=== PATIENT | female | born 1935 | race Caucasian/White ===

== ENCOUNTER 2018-09-10 11:22 | Emergency (ER) | payer MEDICARE, OTHER ==
[2018-09-10 11:37] VITALS: BP 158/65
== END 2018-09-10 11:50 | disposition left against medical advice (07) ==
LOC: LL.ED 11:22
DX: Z53.21 Procedure and treatment not carried out due to patient leaving prior to being seen by health care provider (principal)

== ENCOUNTER 2018-11-01 12:17 | Emergency (ER) | payer MEDICARE, OTHER ==
[2018-11-01 12:23] VITALS: BP 144/75
--- NOTE | 2018-11-01 13:02 | EDM.PDOC ---
ED HPI GENERAL MEDICAL PROBLEM - General Chief Complaint: Upper Extremity Injury/Pain Stated Complaint: left arm deformity Time Seen by Provider: 11/01/18 12:30 Source of Information: Reports: Patient History Limitations: Reports: No Limitations - History of Present Illness INITIAL COMMENTS - FREE TEXT/NARRATIVE: Patient was walking towards a mailbox when she slipped on the ice landing on her left wrist obviously deformed and swollen at that time x-rays done prereduction revealed distal radial fracture Onset: Today, Sudden Duration: Minutes:, Constant Location: Reports: Upper Extremity, Right Quality: Reports: Ache, Throbbing Severity: Moderate Improves with: Reports: None Worsens with: Reports: Movement Context: Reports: Trauma Treatments [employer] MACHINE: Reports: Cold Therapy left arm Pain Score (Numeric/FACES): 10 - Related Data Allergies Allergy/AdvReac Type Severity Reaction Status Date / Time No Known Allergies Allergy Verified 09/10/18 11:28 Home Meds: Home Meds Aspirin [Halfprin] 81 mg PO DAILY 09/14/14 [History] Calcium Carbonate/Magnesium Ox [Oyster Shell Calcium-Magnes] 1 tab PO DAILY [History] Cholecalciferol (Vitamin D3) [Vitamin D3] 1,000 units PO QAM 09/14/14 [History] Melatonin 3 mg PO BEDTIME 09/14/14 [History] Metoprolol Succinate 50 mg PO QAM 09/14/14 [History] Multivitamin [Tab A Amanda] 1 tab PO QAM 09/14/14 [History] Nitroglycerin [Nitrostat] 0.4 mg SL ASDIRECTED PRN 09/14/14 [History] Rosuvastatin [Crestor] 5 mg PO BEDTIME 09/14/14 [History] metFORMIN [Glucophage] 1,000 mg PO QPM 09/14/14 [History] metFORMIN [Glucophage] 500 mg PO QAM 09/14/14 [History] Isosorbide Mononitrate [Imdur] 30 mg PO BID #60 tab.er 09/15/14 [Rx] Past Medical History - Infectious Disease History Infectious Disease History: Reports: Chicken Pox, Measles, Mumps Social & Family History - Tobacco Use Smoking Status *Q: Never Smoker Second Hand Smoke Exposure: No - Caffeine Use Caffeine Use: Reports: Coffee - Recreational Drug Use Recreational Drug Use: No Review of Systems - Review of Systems Review Of Systems: See Below Constitutional: Reports: No Symptoms Eyes: Reports: No Symptoms Ears: Reports: No Symptoms Nose: Reports: No Symptoms Mouth/Throat: Reports: No Symptoms Respiratory: Reports: No Symptoms Cardiovascular: Reports: No Symptoms GI/Abdominal: Reports: No Symptoms Genitourinary: Reports: No Symptoms Musculoskeletal: Reports: Arm Pain (Right arm wrist pain) Skin: Reports: Bruising, Change in Color (Secondary to hematoma) Neurological: Reports: No Symptoms Psychiatric: Reports: No Symptoms ED EXAM, GENERAL - Physical Exam Exam: See Below Exam Limited By: No Limitations General Appearance: Alert, WD/WN, No Apparent Distress Ears: Normal External Exam, Normal Canal, Hearing Grossly Normal, Normal TMs Ear Exam: Bilateral Ear: Auricle Normal, Canal Normal, TM normal Nose: Normal Inspection, Normal Mucosa, No Blood Throat/Mouth: Normal Inspection, Normal Lips, Normal Teeth, Normal Gums, Normal Oropharynx, Normal Voice, No Airway Compromise Head: Atraumatic, Normocephalic Neck: Normal Inspection, Supple, Non-Tender, Full Range of Motion Respiratory/Chest: No Respiratory Distress, Lungs Clear, Normal Breath Sounds, No Accessory Muscle Use, Chest Non-Tender Cardiovascular: Normal Peripheral Pulses, Regular Rate, Rhythm, No Edema, No Gallop, No JVD, No Murmur, No Rub GI/Abdominal: Normal Bowel Sounds, Soft, Non-Tender, No Organomegaly, No Distention, No Abnormal Bruit, No Mass (Female) Exam: Deferred Rectal (Female) Exam: Deferred Back Exam: Normal Inspection, Full Range of Motion, NT Extremities: Normal Capillary Refill, Arm Pain, Other (Radial fracture) Neurological: Alert, Oriented, CN II-XII Intact, Normal Cognition, Normal Gait, Normal Reflexes, No Motor/Sensory Deficits Psychiatric: Normal Affect, Normal Mood Skin Exam: Warm, Dry, Intact, Normal Color, No Rash Lymphatic: No Adenopathy ED TRAUMA EXTREMITY PROCEDURES - Additional/Other Procedure(s) Other (Free Text) Procedure(s): Distal radial fracture at this time an attempt at reduction with traction countertraction failed spoke with hand surgeon Dr. Loaiza will send to [facility] Course - Vital Signs Last Recorded V/S: Last Vital Signs Temp 98.1 F 11/01/18 12:18 Pulse 80 11/01/18 12:18 Resp 20 11/01/18 12:18 BP 144/75 H 11/01/18 12:18 Pulse Ox 99 11/01/18 12:18 - Orders/Labs/Meds Orders: Active Orders 24 hr Category Date Time Status Forearm 2V Lt [CR] Stat Exams 11/01/18 12:23 Taken Forearm 2V Lt [CR] Stat Exams 11/01/18 13:41 Ordered Forearm 2V Rt [CR] Stat Exams 11/01/18 12:58 Taken Departure - Departure Time of Disposition: 13:46 Disposition: DC/Tfer to Acute Hospital 02 Condition: Fair Clinical Impression: Distal radius fracture, right Qualifiers: Encounter type: initial encounter Fracture type: closed Fracture morphology: Colles' Qualified Code(s): S52.531A - Colles' fracture of right radius, initial encounter for closed fracture - Discharge Information *PRESCRIPTION DRUG MONITORING PROGRAM REVIEWED*: No *COPY OF PRESCRIPTION DRUG MONITORING REPORT IN PATIENT SHORTY: No Instructions: Cast or Splint Care, Adult, [id number] Forms: ED Department Discharge - Problem List Review Problem List Initiated/Reviewed/Updated: Yes - My Orders Last 24 Hours: My Active Orders 11/01/18 12:23 Forearm 2V Lt [CR] Stat 11/01/18 12:58 Forearm 2V Rt [CR] Stat 11/01/18 13:41 Forearm 2V Lt [CR] Stat - Assessment/Plan Last 24 Hours: My Active Orders 11/01/18 12:23 Forearm 2V Lt [CR] Stat 11/01/18 12:58 Forearm 2V Rt [CR] Stat 11/01/18 13:41 Forearm 2V Lt [CR] Stat
== END 2018-11-01 14:00 ==
LOC: LL.ED 12:17
DX: S52.531A Colles' fracture of right radius, initial encounter for closed fracture (principal); Z79.82 Long term (current) use of aspirin; Z79.899 Other long term (current) drug therapy; W00.0XXA Fall on same level due to ice and snow, initial encounter
CPT/HCPCS: 25605; 73090-LT; 99284; 99285-25

== ENCOUNTER 2021-09-23 11:17 | Emergency (ER) | payer MEDICARE, OTHER ==
[2021-09-23] MEDS ORDERED: Aspirin 81 MG Tab.Chew PO ONE (11:25)
[2021-09-23] MEDS ORDERED: Sodium Chloride 0.9% 10 ML Syringe FLUSH PRN (11:25)
[2021-09-23] MEDS ORDERED: Nitroglycerin 0.4 MG Tab.SL SL ONE (11:27)
[2021-09-23 12:30] LABS: ANION GAP 10.8 meq/L (7-15); CHLORIDE,CL 102 mmol/L (98-107); SODIUM,NA 140 mmol/L (136-145)
[2021-09-23 12:46] LABS: CORONAVIRUS COVID-19 NAA NEGATIVE (NEGATIVE); RESPIRATORY SYNCYTIAL VIR NAA NEGATIVE (NEGATIVE)
[2021-09-23 17:07] VITALS: BP 137/96; PULSE 86
== END 2021-09-23 15:09 | disposition home or self-care (01) ==
LOC: LL.ED 11:17 → SUPCPDRO 11:17 → LL.ED 15:09
DX: I21.4 Non-ST elevation (NSTEMI) myocardial infarction (principal); I95.2 Hypotension due to drugs; T50.905A Adverse effect of unspecified drugs, medicaments and biological substances, initial encounter; I16.0 Hypertensive urgency; I25.10 Atherosclerotic heart disease of native coronary artery without angina pectoris; E78.00 Pure hypercholesterolemia, unspecified; I10 Essential (primary) hypertension; E11.9 Type 2 diabetes mellitus without complications; K21.9 Gastro-esophageal reflux disease without esophagitis; Z79.82 Long term (current) use of aspirin; Z79.84 Long term (current) use of oral hypoglycemic drugs; Z79.899 Other long term (current) drug therapy; Z20.822 Contact with and (suspected) exposure to COVID-19
CPT/HCPCS: 0241U; 36415; 71045; 80053; 83605; 83735; 84484; 85025; 85379; 85610; 86140; 93005; 93010; 99284; 99285-25; A9270-GY

== ENCOUNTER 2021-09-28 10:00 | Emergency (ER) | payer MEDICARE, OTHER ==
[2021-09-28 10:06] VITALS: PULSE 96
[2021-09-28] MEDS ORDERED: Sodium Chloride 0.9% 10 ML Syringe FLUSH PRN (10:31)
[2021-09-28 11:16] LABS: PTT,PARTIAL THROMBOPLSTIN TIME 28.1 SEC (23.6-29.8)
[2021-09-28 11:24] LABS: ANION GAP 10.7 meq/L (7-15); CHLORIDE,CL 103 mmol/L (98-107); SODIUM,NA 140 mmol/L (136-145)
[2021-09-28 12:16] VITALS: BP 156/75
== END 2021-09-28 12:20 | disposition home or self-care (01) ==
LOC: LL.ED 10:00
DX: I10 Essential (primary) hypertension (principal); I25.10 Atherosclerotic heart disease of native coronary artery without angina pectoris; E78.00 Pure hypercholesterolemia, unspecified; K21.9 Gastro-esophageal reflux disease without esophagitis; E11.9 Type 2 diabetes mellitus without complications; Z79.82 Long term (current) use of aspirin; Z79.899 Other long term (current) drug therapy; Z79.84 Long term (current) use of oral hypoglycemic drugs
CPT/HCPCS: 36415; 70450; 80053; 81001; 83735; 83880; 84100; 84443; 85025; 85610; 85730; 87086; 93005; 99284-25

== ENCOUNTER 2021-10-05 21:00 | Emergency (ER) | payer MEDICARE, OTHER ==
[2021-10-05] MEDS ORDERED: Sodium Chloride 0.9% 10 ML Syringe FLUSH PRN (21:15)
[2021-10-05 21:42] LABS: CHLORIDE,CL 103 mmol/L (98-107); SODIUM,NA 141 mmol/L (136-145)
[2021-10-05 21:43] LABS: ANION GAP 16.7 meq/L (7-15)
[2021-10-06 02:46] VITALS: BP 172/77; PULSE 95
== END 2021-10-05 23:55 | disposition home or self-care (01) ==
LOC: LL.ED 21:00
DX: I35.0 Nonrheumatic aortic (valve) stenosis (principal); R00.2 Palpitations; I25.10 Atherosclerotic heart disease of native coronary artery without angina pectoris; E78.00 Pure hypercholesterolemia, unspecified; I10 Essential (primary) hypertension; K21.9 Gastro-esophageal reflux disease without esophagitis; E11.9 Type 2 diabetes mellitus without complications; Z79.82 Long term (current) use of aspirin; Z79.84 Long term (current) use of oral hypoglycemic drugs; Z79.899 Other long term (current) drug therapy
CPT/HCPCS: 36415; 71045; 80053; 84484; 85025; 93005; 99285-25

== ENCOUNTER 2022-06-06 11:09 | Emergency (ER) | payer MEDICARE, OTHER ==
[2022-06-06] MEDS: Ondansetron 4 MG/2 ML SDV IVPUSH ONE (12:31)
[2022-06-06] MEDS: Morphine 2 MG/ML SYRINGE IVPUSH ONE ×2 (12:34→13:23)
[2022-06-06] MEDS: Acetaminophen 325 MG Tab PO ONE (12:39)
[2022-06-06 13:05] LABS: CHLORIDE,CL 101 mmol/L (98-107); SODIUM,NA 139 mmol/L (136-145)
[2022-06-06 13:06] LABS: ESTIMATED GFR 64 mL/min (>=60)
[2022-06-06 13:27] VITALS: BP 142/60; PULSE 67
== END 2022-06-06 15:40 | disposition home or self-care (01) ==
LOC: LL.ED 11:09
DX: S42.291A Other displaced fracture of upper end of right humerus, initial encounter for closed fracture (principal); I25.10 Atherosclerotic heart disease of native coronary artery without angina pectoris; E78.00 Pure hypercholesterolemia, unspecified; I10 Essential (primary) hypertension; E11.9 Type 2 diabetes mellitus without complications; Z79.82 Long term (current) use of aspirin; Z79.899 Other long term (current) drug therapy; Z79.84 Long term (current) use of oral hypoglycemic drugs; W18.40XA Slipping, tripping and stumbling without falling, unspecified, initial encounter
CPT/HCPCS: 36415; 73030-RT; 80053; 85025; 96374; 96375; 96376; 99283-25; 99284; A9270-GY; J2270; J2405

== ENCOUNTER 2022-10-24 10:17 | Emergency (ER) | payer MEDICARE, OTHER ==
[2022-10-24 12:33] VITALS: BP 124/65; PULSE 68
== END 2022-10-24 12:33 | disposition home or self-care (01) ==
LOC: LL.ED 10:17
DX: S82.035A Nondisplaced transverse fracture of left patella, initial encounter for closed fracture (principal); S80.02XA Contusion of left knee, initial encounter; S60.222A Contusion of left hand, initial encounter; I25.10 Atherosclerotic heart disease of native coronary artery without angina pectoris; E78.00 Pure hypercholesterolemia, unspecified; I10 Essential (primary) hypertension; E11.9 Type 2 diabetes mellitus without complications; Z79.82 Long term (current) use of aspirin; Z79.899 Other long term (current) drug therapy; Z79.84 Long term (current) use of oral hypoglycemic drugs; W01.0XXA Fall on same level from slipping, tripping and stumbling without subsequent striking against object, initial encounter
CPT/HCPCS: 73060-RT; 73130-LT; 73560-LT; 99283

== ENCOUNTER 2022-10-26 11:13 | Inpatient (IN) | payer SELFPAY ==
[2022-10-31] MEDS: CALCIUM/MAGNESIUM/ZINC PO SCH (17:26)
[2022-10-31] MEDS: traMADol 50 MG Tab PO PRN (18:15)
[2022-10-31] MEDS: Menthol 10%/Methyl Salicylate 15% 85 GM Tube TOP PRN (18:26)
[2022-10-31] MEDS ORDERED: Diclofenac Sodium 1% Gel 100 GM Tube TOP SCH (20:00)
[2022-10-31] MEDS: guaiFENesin 600 MG Tab.ER PO PRN (20:11)
[2022-10-31] MEDS: Melatonin 3 MG Tab PO SCH (20:19)
[2022-10-31] MEDS: ROSUVASTATIN 5 MG PO SCH (20:20)
[2022-10-31] MEDS: Latanoprost 0.005% Ophth Soln 2.5 ML Bottle EYEBOTH SCH (20:20)
[2022-10-31] MEDS: Acetaminophen 325 MG Tab PO PRN (20:25)
[2022-11-01] MEDS: Aspirin 81 MG Tab.EC PO SCH (08:20)
[2022-11-01] MEDS: Isosorbide Mononitrate 30 MG Tab.ER PO SCH (08:20)
[2022-11-01] MEDS: Metoprolol Succinate 25 MG Tab.ER PO SCH (08:23)
[2022-11-01] MEDS: Cyanocobalamin (Vitamin B12) 1,000 MCG Tab PO SCH (08:23)
[2022-11-01] MEDS: Multivitamin Tab PO SCH (08:23)
[2022-11-01] MEDS: Timolol Maleate 0.5% Ophth Soln 5 ML Bottle EYEBOTH SCH (08:24)
[2022-11-01] MEDS: Omeprazole 20 MG Cap.CR PO SCH (08:25)
[2022-11-01] MEDS: Cholecalciferol (Vitamin D3) 25 MCG Tab PO SCH (08:26)
[2022-11-01] MEDS: Acetaminophen 325 MG Tab PO PRN ×2 (08:29→20:16)
[2022-11-01] MEDS: Lutein/Minerals/Vitamin C/Vitamin E Acetate Cap PO SCH (09:36)
[2022-11-01] MEDS: metFORMIN 500 MG Tab PO SCH (12:02)
[2022-11-01] MEDS: CALCIUM/MAGNESIUM/ZINC PO SCH (18:17)
[2022-11-01] MEDS: traMADol 50 MG Tab PO PRN (19:11)
[2022-11-01] MEDS: Melatonin 3 MG Tab PO SCH (19:59)
[2022-11-01] MEDS: ROSUVASTATIN 5 MG PO SCH (19:59)
[2022-11-01] MEDS: guaiFENesin 600 MG Tab.ER PO PRN (20:00)
[2022-11-01] MEDS: Latanoprost 0.005% Ophth Soln 2.5 ML Bottle EYEBOTH SCH (20:00)
[2022-11-01] MEDS: Menthol 10%/Methyl Salicylate 15% 85 GM Tube TOP PRN (20:07)
[2022-11-02] MEDS: Acetaminophen 325 MG Tab PO PRN ×2 (05:22→13:20)
[2022-11-02] MEDS: guaiFENesin 600 MG Tab.ER PO PRN ×2 (05:31→19:39)
[2022-11-02] MEDS: Menthol 10%/Methyl Salicylate 15% 85 GM Tube TOP PRN ×2 (07:49→10:15)
[2022-11-02] MEDS: Isosorbide Mononitrate 30 MG Tab.ER PO SCH (07:52)
[2022-11-02] MEDS: Aspirin 81 MG Tab.EC PO SCH (07:52)
[2022-11-02] MEDS: Omeprazole 20 MG Cap.CR PO SCH (07:53)
[2022-11-02] MEDS: Lutein/Minerals/Vitamin C/Vitamin E Acetate Cap PO SCH (07:53)
[2022-11-02] MEDS: Timolol Maleate 0.5% Ophth Soln 5 ML Bottle EYEBOTH SCH (07:53)
[2022-11-02] MEDS: Multivitamin Tab PO SCH (07:53)
[2022-11-02] MEDS: Metoprolol Succinate 25 MG Tab.ER PO SCH (07:54)
[2022-11-02] MEDS: Cyanocobalamin (Vitamin B12) 1,000 MCG Tab PO SCH (07:54)
[2022-11-02] MEDS: Cholecalciferol (Vitamin D3) 25 MCG Tab PO SCH (07:56)
[2022-11-02] MEDS ORDERED: Benzonatate 100 MG Cap PO PRN (09:12)
[2022-11-02] MEDS: metFORMIN 500 MG Tab PO SCH (11:19)
[2022-11-02] MEDS: BENZONATATE 200 MG PO PRN (15:02)
[2022-11-02] MEDS: CALCIUM/MAGNESIUM/ZINC PO SCH (17:24)
[2022-11-02] MEDS: Melatonin 3 MG Tab PO SCH (19:38)
[2022-11-02] MEDS: Latanoprost 0.005% Ophth Soln 2.5 ML Bottle EYEBOTH SCH (19:38)
[2022-11-02] MEDS: ROSUVASTATIN 5 MG PO SCH (19:38)
[2022-11-03] MEDS: BENZONATATE 200 MG PO PRN ×2 (01:15→11:10)
[2022-11-03] MEDS: guaiFENesin 600 MG Tab.ER PO PRN ×2 (07:47→21:17)
[2022-11-03] MEDS: Lutein/Minerals/Vitamin C/Vitamin E Acetate Cap PO SCH (07:48)
[2022-11-03] MEDS: Menthol 10%/Methyl Salicylate 15% 85 GM Tube TOP PRN ×2 (07:48→19:25)
[2022-11-03] MEDS: Timolol Maleate 0.5% Ophth Soln 5 ML Bottle EYEBOTH SCH (07:49)
[2022-11-03] MEDS: Multivitamin Tab PO SCH (07:49)
[2022-11-03] MEDS: Omeprazole 20 MG Cap.CR PO SCH (07:50)
[2022-11-03] MEDS: Aspirin 81 MG Tab.EC PO SCH (07:50)
[2022-11-03] MEDS: Isosorbide Mononitrate 30 MG Tab.ER PO SCH (07:50)
[2022-11-03] MEDS: Cyanocobalamin (Vitamin B12) 1,000 MCG Tab PO SCH (07:51)
[2022-11-03] MEDS: Cholecalciferol (Vitamin D3) 25 MCG Tab PO SCH (07:51)
[2022-11-03] MEDS: Metoprolol Succinate 25 MG Tab.ER PO SCH (07:51)
[2022-11-03] MEDS: Acetaminophen 325 MG Tab PO PRN (07:53)
[2022-11-03] MEDS: metFORMIN 500 MG Tab PO SCH (11:10)
[2022-11-03] MEDS: CALCIUM/MAGNESIUM/ZINC PO SCH (17:29)
[2022-11-03] MEDS: ROSUVASTATIN 5 MG PO SCH (19:24)
[2022-11-03] MEDS: Melatonin 3 MG Tab PO SCH (19:24)
[2022-11-03] MEDS: Latanoprost 0.005% Ophth Soln 2.5 ML Bottle EYEBOTH SCH (19:25)
[2022-11-04] MEDS: BENZONATATE 200 MG PO PRN ×2 (05:19→13:10)
[2022-11-04] MEDS: Multivitamin Tab PO SCH (07:47)
[2022-11-04] MEDS: Timolol Maleate 0.5% Ophth Soln 5 ML Bottle EYEBOTH SCH (07:47)
[2022-11-04] MEDS: Aspirin 81 MG Tab.EC PO SCH (07:48)
[2022-11-04] MEDS: Isosorbide Mononitrate 30 MG Tab.ER PO SCH (07:48)
[2022-11-04] MEDS: Lutein/Minerals/Vitamin C/Vitamin E Acetate Cap PO SCH (07:48)
[2022-11-04] MEDS: Metoprolol Succinate 25 MG Tab.ER PO SCH (07:49)
[2022-11-04] MEDS: Omeprazole 20 MG Cap.CR PO SCH (07:49)
[2022-11-04] MEDS: Cyanocobalamin (Vitamin B12) 1,000 MCG Tab PO SCH (07:50)
[2022-11-04] MEDS: guaiFENesin 600 MG Tab.ER PO PRN ×2 (07:51→21:09)
[2022-11-04] MEDS: Cholecalciferol (Vitamin D3) 25 MCG Tab PO SCH (07:51)
[2022-11-04] MEDS: Acetaminophen 325 MG Tab PO PRN (11:27)
[2022-11-04] MEDS: metFORMIN 500 MG Tab PO SCH (11:27)
[2022-11-04] MEDS: CALCIUM/MAGNESIUM/ZINC PO SCH (17:13)
[2022-11-04] MEDS: Melatonin 3 MG Tab PO SCH (19:26)
[2022-11-04] MEDS: ROSUVASTATIN 5 MG PO SCH (19:26)
[2022-11-04] MEDS: Latanoprost 0.005% Ophth Soln 2.5 ML Bottle EYEBOTH SCH (19:26)
[2022-11-04] MEDS: Menthol 10%/Methyl Salicylate 15% 85 GM Tube TOP PRN (21:09)
[2022-11-05] MEDS: guaiFENesin 600 MG Tab.ER PO PRN (08:46)
[2022-11-05] MEDS: Omeprazole 20 MG Cap.CR PO SCH (08:47)
[2022-11-05] MEDS: Cyanocobalamin (Vitamin B12) 1,000 MCG Tab PO SCH (08:49)
[2022-11-05] MEDS: Metoprolol Succinate 25 MG Tab.ER PO SCH (08:50)
[2022-11-05] MEDS: Isosorbide Mononitrate 30 MG Tab.ER PO SCH (08:51)
[2022-11-05] MEDS: Aspirin 81 MG Tab.EC PO SCH (08:54)
[2022-11-05] MEDS: Multivitamin Tab PO SCH (08:55)
[2022-11-05] MEDS: Lutein/Minerals/Vitamin C/Vitamin E Acetate Cap PO SCH (08:56)
[2022-11-05] MEDS: Timolol Maleate 0.5% Ophth Soln 5 ML Bottle EYEBOTH SCH (08:58)
[2022-11-05] MEDS: Cholecalciferol (Vitamin D3) 25 MCG Tab PO SCH (08:59)
[2022-11-05 12:17] VITALS: BP 141/77; PULSE 92
[2022-11-05] MEDS: metFORMIN 500 MG Tab PO SCH (12:23)
== END 2022-11-05 13:00 | DRG 561 ==
LOC: LL.SWG 10-31 09:40
PROVIDERS: ADMIT Nurse Practitioner Family; ATTEND Nurse Practitioner Family
DX: S82.002D Unspecified fracture of left patella, subsequent encounter for closed fracture with routine healing (principal); S60.222A Contusion of left hand, initial encounter; W19.XXXA Unspecified fall, initial encounter; S32.000D Wedge compression fracture of unspecified lumbar vertebra, subsequent encounter for fracture with routine healing; F32.A Depression, unspecified; Z66 Do not resuscitate; I35.0 Nonrheumatic aortic (valve) stenosis; E11.9 Type 2 diabetes mellitus without complications; I25.10 Atherosclerotic heart disease of native coronary artery without angina pectoris; E78.00 Pure hypercholesterolemia, unspecified; K21.9 Gastro-esophageal reflux disease without esophagitis; I10 Essential (primary) hypertension; Z79.82 Long term (current) use of aspirin; Z79.899 Other long term (current) drug therapy; Z79.84 Long term (current) use of oral hypoglycemic drugs; Z86.16 Personal history of COVID-19; Z85.3 Personal history of malignant neoplasm of breast; Z90.11 Acquired absence of right breast and nipple
CPT/HCPCS: 82947; 97110-GO; 97110-GP; 97162-GP; 97165-GO; 97530-GO; 97530-GP; 97535-GO; A9270-GY

== ENCOUNTER 2023-06-06 14:07 | Emergency (ER) | payer MEDICARE, OTHER ==
[2023-06-06 14:20] VITALS: BP 169/80; PULSE 106
== END 2023-06-06 16:15 | disposition home or self-care (01) ==
LOC: LL.ED 14:07
DX: S82.034A Nondisplaced transverse fracture of right patella, initial encounter for closed fracture (principal); E11.9 Type 2 diabetes mellitus without complications; I25.10 Atherosclerotic heart disease of native coronary artery without angina pectoris; E78.00 Pure hypercholesterolemia, unspecified; I10 Essential (primary) hypertension; K21.9 Gastro-esophageal reflux disease without esophagitis; Z79.82 Long term (current) use of aspirin; Z79.84 Long term (current) use of oral hypoglycemic drugs; Z79.899 Other long term (current) drug therapy; W18.30XA Fall on same level, unspecified, initial encounter; Y92.512 Supermarket, store or market as the place of occurrence of the external cause
CPT/HCPCS: 73562-RT; 90832; 99283